=== PATIENT | female | born 2000 | race Caucasian/White ===

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

== ENCOUNTER 2021-02-09 20:29 | Emergency (ER) | payer MEDICAID ==
--- NOTE | 2021-02-09 20:34 | ERPHSYRPT ---
- History of Present Illness Time Seen by Provider: 02/09/21 20:34 Source: patient, family Exam Limitations: no limitations Physician History: This is a 20-year-old white female who felt very weak today and almost passed out. She did not hit her head. She had this same issue in the past but never sought medical care for it. In the last few days she has been outside in the sun and not hydrating well. She has she used marijuana in the past. She denies any other illicit drugs or alcohol use. She did not hit her head. She has no chest pain. She has no shortness of breath. She has no abdominal pain. She has no nausea vomiting or diarrhea. Witnessed: by family Prior Episodes: single episode today, remote history Timing/Duration: today Precipitating Factors: unknown Context: sitting Loss of Consciousness: no loss of consciousness Charcter of event(s): felt faint, almost passed out Allergies/Adverse Reactions: cetirizine Allergy (Severe, Verified 02/09/21 20:35) Anaphylactic Reaction seizure hydroxyzine Allergy (Severe, Verified 02/09/21 20:35) seizure Home Medications: Sertraline HCl [Zoloft] 200 mg PO HS 08/17/15 [History] Albuterol Common Canister [Ventolin Common Canister] 2 puff IH UD PRN 10/25/18 [History] Famotidine [Pepcid] 40 mg PO DAILY 11/02/18 [History] Norgestimate-Ethinyl Estradiol [Tri-Sprintec] 1 each PO DAILY 11/02/18 [History] Sucralfate [Carafate] 10 ml PO QID 11/02/18 [History] Hx Tetanus, Diphtheria Vaccination/Date Given: Yes Hx Influenza Vaccination/Date Given: No Hx Pneumococcal Vaccination/Date Given: No Travel Risk - International Travel Have you traveled outside of the country in past 3 weeks: No - Coronavirus Screening Are you exhibiting any of the following symptoms?: No Close contact with a COVID-19 positive Pt in past 14-21 Days: No - Past Medical History Pertinent Past Medical History: Yes Neurological History: No Pertinent History ENT History: Other Cardiac History: No Pertinent History Respiratory History: No Pertinent History Endocrine Medical History: No Pertinent History Musculoskeletal History: No Pertinent History GI Medical History: GERD History: Other Psycho-Social History: Depression Female Reproductive Disorders: No Pertinent History Other Medical History: UTI, sinus problems - Past Surgical History Past Surgical History: Yes Neuro Surgical History: No Pertinent History Cardiac: No Pertinent History Respiratory: No Pertinent History Gastrointestinal: No Pertinent History Genitourinary: No Pertinent History Musculoskeletal: No Pertinent History, Orthopedic Surgery Female Surgical History: No Pertinent History, Other Other Surgical History: frenulectomy. pins placed in ankles - Social History Smoking Status: Never smoker Exposure to second hand smoke: Yes Drug Use: none Patient Lives Alone: No - Review of Systems Constitutional: No Symptoms Eyes: No Symptoms Ears, Nose, & Throat: No Symptoms Respiratory: No Symptoms Cardiac: No Symptoms Abdominal/Gastrointestinal: No Symptoms Genitourinary Symptoms: No Symptoms Musculoskeletal: No Symptoms Skin: No Symptoms Neurological: No Symptoms Psychological: No Symptoms Endocrine: No Symptoms Hematologic/Lymphatic: No Symptoms Immunological/Allergic: No Symptoms All Other Systems: Reviewed and Negative Physical Exam - Nursing Vital Signs Nursing Vital Signs: Initial Vital Signs Temperature 98.1 F 02/09/21 20:35 Pulse Rate 93 H 02/09/21 20:35 Respiratory Rate 18 02/09/21 20:35 Blood Pressure 118/74 02/09/21 20:35 O2 Sat by Pulse Oximetry 96 02/09/21 20:35 Pain Scale Pain Intensity 4 - [place] Coma Scale Best Eye Response ([place]): (4) open spontaneously Best Verbal Response ([place]): (5) oriented Best Motor Response ([place]): (6) obeys commands [place] Total: 15 - Physical Exam General Appearance: no apparent distress, alert, anxiety Eye Exam: bilateral eye: normal inspection, PERRL, EOMI Ears, Nose, Throat Exam: normal ENT inspection, moist mucous membranes Neck Exam: normal inspection, non-tender, supple, full range of motion Respiratory: normal breath sounds, lungs clear, airway intact, No chest tenderness, No respiratory distress Cardiovascular: regular rate/rhythm, normal heart sounds, normal peripheral pulses Gastrointestinal: soft, normal bowel sounds, No tenderness Pelvic Exam: not done Rectal Exam: not done Back Exam: normal inspection, normal range of motion, No CVA tenderness, No vertebral tenderness Extremity Exam: normal inspection, normal range of motion, pelvis stable Mental Status: alert, oriented x 3, cooperative Coordination/Gait: normal finger to nose, normal gait, normal cerebellar function Motor/Sensory: no motor deficit Skin Exam: normal color, warm, dry SpO2 Interpretation: normal O2 Delivery: Room Air - Course Nursing assessment & vital signs reviewed: Yes EKG Interpreted by Me: RATE (74), Sinus Rhythm, NORMAL AXIS, NORMAL INTERVALS, NORMAL QRS, NORMAL ST-T, Other (No comparison EKG.) Ordered Tests: Active Orders 24 hr Category Date Time Status Clean Catch Urine Specimen STAT Care 02/09/21 20:54 Active EKG-ER Only STAT Care 02/09/21 20:54 Active IV Insertion STAT Care 02/09/21 20:54 Active POCT Glucose Check STAT Care 02/09/21 20:54 Active Pulse Oximetry (ED) STAT Care 02/09/21 20:54 Active HEAD WITHOUT CONTRAST [CT] Stat Exams 02/09/21 21:33 Taken CBC W DIFF Stat Lab 02/09/21 20:55 Completed CMP Stat Lab 02/09/21 20:55 Completed ETHYL ALCOHOL Stat Lab 02/09/21 20:55 Completed HCG,QUALITATIVE URINE Stat Lab 02/09/21 20:47 Completed POCT GLUCOSE Stat Lab 02/09/21 21:12 Completed UA W/RFX UR CULTURE Stat Lab 02/09/21 20:47 Completed Urine Triage Profile Stat Lab 02/09/21 21:06 Ordered Medication Summary Discontinued Medications Generic Name Dose Route Start Last Admin Trade Name Ezequiel PRN Reason Stop Dose Admin Sodium Chloride 1,000 mls @ 999 mls/hr 02/09/21 20:54 02/09/21 21:16 Sodium Chloride 0.9% 1000 Ml IV 02/09/21 21:54 999 mls/hr .Q1H1M STA Administration Sodium Chloride Confirm 02/09/21 21:15 Sodium Chloride 0.9% 1000 Ml Administered 02/09/21 21:16 Dose 1,000 mls @ ud .ROUTE .STK-MED ONE Lab/Rad Data: Laboratory Result Diagrams 02/09/21 20:55 02/09/21 20:55 Laboratory Results 02/09/21 02/09/21 02/09/21 Range/Units 21:12 20:55 20:55 WBC 12.5 H (4.0-10.5) K/mm3 RBC 4.41 (4.1-5.4) M/mm3 Hgb 13.4 (12.0-16.0) gm/dl Hct 40.7 (35-47) % MCV 92.3 (78-100) fl MCH 30.4 (26-32) pg MCHC 32.9 (32-36) g/dl RDW 13.0 (11.5-14.0) % Plt Count 246 (150-450) K/mm3 MPV 9.7 (7.5-11.0) fl Gran % 69.2 H (36.0-66.0) % Eos # (Auto) 0.13 (0-0.5) Absolute Lymphs (auto) 2.77 (1.0-4.6) Absolute Monos (auto) 0.89 (0.0-1.3) Lymphocytes % 22.2 L (24.0-44.0) % Monocytes % 7.1 (0.0-12.0) % Eosinophils % 1.0 (0.00-5.0) % Basophils % 0.5 (0.0-0.4) % Absolute Granulocytes 8.61 H (1.4-6.9) Basophils # 0.06 (0-0.4) Sodium 139 (137-145) mmol/L Potassium 3.8 (3.5-5.1) mmol/L Chloride 105 (98-107) mmol/L Carbon Dioxide 25 (22-30) mmol/L Anion Gap 12.9 (5-15) MEQ/L BUN 10 (7-17) mg/dL Creatinine 0.61 (0.52-1.04) mg/dL Estimated GFR > 60.0 ML/MIN Glucose 91 (74-106) mg/dL POC Glucometer 89 (74 to 106) mg/dL Calcium 9.2 (8.4-10.2) mg/dL Total Bilirubin 0.20 (0.2-1.3) mg/dL AST 20 (14-36) U/L ALT 12 (0-35) U/L Alkaline Phosphatase 83 (38-126) U/L Serum Total Protein 7.3 (6.3-8.2) g/dL Albumin 4.3 (3.5-5.0) g/dL Urine Color (YELLOW) Urine Appearance (CLEAR) Urine pH (5-6) Ur Specific [place] (1.005-1.025) Urine Protein (Negative) Urine Ketones (NEGATIVE) Urine Blood (0-5) [place]/ul Urine Nitrite (NEGATIVE) Urine Bilirubin (NEGATIVE) Urine Urobilinogen (0-1) mg/dL Ur Leukocyte Esterase (NEGATIVE) Urine WBC (Auto) (0-5) /HPF Urine RBC (Auto) (0-2) /HPF U Epithel Cells (Auto) (FEW) /HPF Urine Bacteria (Auto) (NEGATIVE) /HPF Urine Mucus (Auto) (NEGATIVE) /HPF Urine Culture Reflexed (NO) Urine Glucose (NEGATIVE) mg/dL Urine HCG, Qual (Negative) Ethyl Alcohol < 10 (0-10) mg/dL 02/09/21 02/09/21 Range/Units 20:47 20:47 WBC (4.0-10.5) K/mm3 RBC (4.1-5.4) M/mm3 Hgb (12.0-16.0) gm/dl Hct (35-47) % MCV (78-100) fl MCH (26-32) pg MCHC (32-36) g/dl RDW (11.5-14.0) % Plt Count (150-450) K/mm3 MPV (7.5-11.0) fl Gran % (36.0-66.0) % Eos # (Auto) (0-0.5) Absolute Lymphs (auto) (1.0-4.6) Absolute Monos (auto) (0.0-1.3) Lymphocytes % (24.0-44.0) % Monocytes % (0.0-12.0) % Eosinophils % (0.00-5.0) % Basophils % (0.0-0.4) % Absolute Granulocytes (1.4-6.9) Basophils # (0-0.4) Sodium (137-145) mmol/L Potassium (3.5-5.1) mmol/L Chloride (98-107) mmol/L Carbon Dioxide (22-30) mmol/L Anion Gap (5-15) MEQ/L BUN (7-17) mg/dL Creatinine (0.52-1.04) mg/dL Estimated GFR ML/MIN Glucose (74-106) mg/dL POC Glucometer (74 to 106) mg/dL Calcium (8.4-10.2) mg/dL Total Bilirubin (0.2-1.3) mg/dL AST (14-36) U/L ALT (0-35) U/L Alkaline Phosphatase (38-126) U/L Serum Total Protein (6.3-8.2) g/dL Albumin (3.5-5.0) g/dL Urine Color YELLOW (YELLOW) Urine Appearance SLIGHTLY CLOUDY (CLEAR) Urine pH 7.0 (5-6) Ur Specific [place] 1.023 (1.005-1.025) Urine Protein NEGATIVE (Negative) Urine Ketones NEGATIVE (NEGATIVE) Urine Blood NEGATIVE (0-5) [place]/ul Urine Nitrite NEGATIVE (NEGATIVE) Urine Bilirubin NEGATIVE (NEGATIVE) Urine Urobilinogen NEGATIVE (0-1) mg/dL Ur Leukocyte Esterase SMALL (NEGATIVE) Urine WBC (Auto) 6-10 (0-5) /HPF Urine RBC (Auto) NONE (0-2) /HPF U Epithel Cells (Auto) RARE (FEW) /HPF Urine Bacteria (Auto) NONE (NEGATIVE) /HPF Urine Mucus (Auto) SLIGHT (NEGATIVE) /HPF Urine Culture Reflexed NO (NO) Urine Glucose NEGATIVE (NEGATIVE) mg/dL Urine HCG, Qual NEGATIVE (Negative) Ethyl Alcohol (0-10) mg/dL - Progress Progress: improved Progress Note: 02/09/21 22:22 CAT scan of the head without contrast is a normal CT of the head. There is no comparison EKGs available. There is no acute intracranial findings. 02/09/21 22:35 Medical decision making: This patient states that she is feeling much better. She does have a mild urinary tract infection I will provide her with Keflex orally 500 mg once tonight and send 7-day prescription to her pharmacy. She is to drink plenty of fluids. She stay in a cool environment over the next 48 hours. Counseled pt/family regarding: lab results, diagnosis, need for follow-up, rad results - Departure Departure Disposition: Home Clinical Impression: Urinary tract infection, Near syncope Condition: Stable Critical Care Time: No Referrals: DAVID FISHER [Primary Care Provider] - Additional Instructions: Drink plenty of fluids. Avoid exposure to sun and heat over the next 48 hours. Take your antibiotics as prescribed. Follow-up with your primary care physician for further management.
[2021-02-09] MEDS ORDERED: Sodium Chloride 0.9% 1000 ML 1,000 ML IV STA (20:54)
[2021-02-09 21:14] LABS: Absolute Neutrophil Ct (ANC) 8.61 (1.4-6.9); BASOPHIL % 0.5 % (0.0-0.4); Basophil (Absolute #) 0.06 (0-0.4); Eosinophil (Absolute #) 0.13 (0-0.5); Hematocrit 40.7 % (35-47); Hemoglobin 13.4 gm/dl (12.0-16.0); Lymphocyte (Absolute #) 2.77 (1.0-4.6); Lymphocytes % 22.2 % (24.0-44.0); Mean Cell Volume 92.3 fl (78-100); Mean Corpuscular Hemoglobin 30.4 pg (26-32); Mean Corpuscular Hgb Concent. 32.9 g/dl (32-36); Mean Platelet Volume 9.7 fl (7.5-11.0); Monocyte (Absolute #) 0.89 (0.0-1.3); Monocytes % 7.1 % (0.0-12.0); Neutrophil % 69.2 % (36.0-66.0); Platelet Count 246 K/mm3 (150-450); Red Blood Count 4.41 M/mm3 (4.1-5.4); White Blood Count 12.5 K/mm3 (4.0-10.5)
[2021-02-09] MEDS ORDERED: Sodium Chloride 0.9% 1000 ML 1,000 ML ONE (21:15)
[2021-02-09 21:29] LABS: ALBUMIN 4.3 g/dL (3.5-5.0); ALKALINE PHOSPHATASE 83 U/L (38-126); ANION GAP 12.9 MEQ/L (5-15); BLOOD UREA NITROGEN 10 mg/dL (7-17); CHLORIDE 105 mmol/L (98-107); Calcium 9.2 mg/dL (8.4-10.2); Carbon Dioxide 25 mmol/L (22-30); Creatinine 1 0.61 mg/dL (0.52-1.04); EST GLOMERULAR FILTRATION RATE > 60.0 ML/MIN; ETHYL ALCOHOL < 10 mg/dL (0-10); Glucose 91 mg/dL (74-106); Potassium 3.8 mmol/L (3.5-5.1); SGOT/AST 20 U/L (14-36); SGPT/ALT 12 U/L (0-35); SODIUM 139 mmol/L (137-145); Total Protein 7.3 g/dL (6.3-8.2)
[2021-02-09 21:31] LABS: Appearance SLIGHTLY CLOUDY (CLEAR); Bilirubin NEGATIVE (NEGATIVE); Blood NEGATIVE Ery/ul (0-5); Epithelial Cells RARE /HPF (FEW); Glucose NEGATIVE (NEGATIVE); Ketones NEGATIVE (NEGATIVE); Leukocyte Esterase SMALL (NEGATIVE); Mucus SLIGHT /HPF (NEGATIVE); Nitrite NEGATIVE (NEGATIVE); Protein,Urine Dip NEGATIVE (Negative); Specific Gravity 1.023 (1.005-1.025); Urobilinogen NEGATIVE mg/dL (0-1)
[2021-02-09 22:09] VITALS: O2SAT 98
[2021-02-09 22:53] VITALS: BP 106/70; PULSE 76
[2021-02-09 23:10] LABS: Amphetamine,Urine NEGATIVE (NEGATIVE); Barbiturate,Urine NEGATIVE (NEGATIVE); Benzodiazepine,Urine NEGATIVE (NEGATIVE); Cocaine,Urine NEGATIVE (NEGATIVE); Methadone,Urine NEGATIVE (NEGATIVE); Opiate,Urine NEGATIVE (NEGATIVE); PCP,Urine NEGATIVE (NEGATIVE); THC,Urine POSITIVE (NEGATIVE)
--- NOTE | 2021-02-10 08:47 | XRAY ---
Indication: Syncope. Headache. Multiple contiguous axial images obtained through the head without contrast. Comparison: None Normal appearing brain parenchyma, ventricles, and bony calvarium. Visualized paranasal sinuses and mastoid air cells are clear. Impression: Normal CT head without contrast exam.
== END 2021-02-09 22:56 | disposition home or self-care (01) ==
LOC: ED 20:29
DX: N39.0 Urinary tract infection, site not specified (principal); R55 Syncope and collapse; Z79.899 Other long term (current) drug therapy
CPT/HCPCS: 36000; 36415; 70450; 80053; 80307; 81001; 82947; 84703; 85025; 93005; 94760; 99284; G0480

== ENCOUNTER 2021-03-27 12:55 | Emergency (ER) | payer MEDICAID ==
[2021-03-27 13:18] VITALS: O2SAT 98
[2021-03-27] MEDS ORDERED: Sodium Chloride 0.9% 1000 ML 1,000 ML IV STA (13:24)
[2021-03-27] MEDS ORDERED: Sodium Chloride 0.9% 1000 ML 1,000 ML ONE (13:27)
[2021-03-27 13:40] LABS: Appearance SLIGHTLY CLOUDY (CLEAR); Bacteria RARE /HPF (NEGATIVE); Bilirubin NEGATIVE (NEGATIVE); Blood NEGATIVE Ery/ul (0-5); Epithelial Cells RARE /HPF (FEW); Glucose NEGATIVE (NEGATIVE); Ketones NEGATIVE (NEGATIVE); Leukocyte Esterase SMALL (NEGATIVE); Mucus SLIGHT /HPF (NEGATIVE); Nitrite NEGATIVE (NEGATIVE); Protein,Urine Dip NEGATIVE (Negative); RBC 0-2 /HPF (0-2); Specific Gravity 1.024 (1.005-1.025); Urobilinogen NEGATIVE mg/dL (0-1)
[2021-03-27 13:54] LABS: Absolute Neutrophil Ct (ANC) 6.05 (1.4-6.9); BASOPHIL % 0.4 % (0.0-0.4); Basophil (Absolute #) 0.04 (0-0.4); Eosinophil % 1.6 % (0.00-5.0); Eosinophil (Absolute #) 0.15 (0-0.5); Hematocrit 39.3 % (35-47); Hemoglobin 13.2 gm/dl (12.0-16.0); Lymphocytes % 25.9 % (24.0-44.0); Mean Corpuscular Hemoglobin 30.9 pg (26-32); Mean Corpuscular Hgb Concent. 33.6 g/dl (32-36); Mean Platelet Volume 10.1 fl (7.5-11.0); Monocyte (Absolute #) 0.63 (0.0-1.3); Monocytes % 6.8 % (0.0-12.0); Neutrophil % 65.3 % (36.0-66.0); Platelet Count 240 K/mm3 (150-450); Red Blood Count 4.27 M/mm3 (4.1-5.4); Red Cell Distribution Width 12.5 % (11.5-14.0); White Blood Count 9.3 K/mm3 (4.0-10.5)
[2021-03-27 14:07] LABS: ALKALINE PHOSPHATASE 91 U/L (38-126); AMYLASE 47 U/L (30-110); ANION GAP 12.9 MEQ/L (5-15); BLOOD UREA NITROGEN 11 mg/dL (7-17); CHLORIDE 104 mmol/L (98-107); Calcium 9.2 mg/dL (8.4-10.2); Carbon Dioxide 25 mmol/L (22-30); Creatinine 1 0.65 mg/dL (0.52-1.04); EST GLOMERULAR FILTRATION RATE > 60.0 ML/MIN; Glucose 94 mg/dL (74-106); LIPASE 39 U/L (23-300); Potassium 3.9 mmol/L (3.5-5.1); SGOT/AST 18 U/L (14-36); SGPT/ALT 9 U/L (0-35); SODIUM 139 mmol/L (137-145); Total Protein 6.9 g/dL (6.3-8.2)
--- NOTE | 2021-03-27 14:12 | ERPHSYRPT ---
- History of Present Illness Time Seen by Provider: 03/27/21 14:09 Historian: patient Exam Limitations: no limitations Patient Subjective Stated Complaint: pt here for right lower abd pain that radiates to back, no fever, no nuasea, bm today, no pain with urination Triage Nursing Assessment: pt alert, resp easy, skin w/d/p. face mask in place, abd soft, Physician History: pt here for right lower abd pain that radiates to back, no fever, no nuasea, bm today, no pain with urination Patient has this problem off and on for last couple months. Patient also have problem with her menstrual cycles which are very irregular and are associated with abdominal pain. She denies any nausea vomiting fever chills urine trouble blood in the urine pain while urination any vaginal discharge. Timing/Duration: day(s) Activities at Onset: none Quality: burning Abdominal Pain Onset Location: RLQ Pain Radiation: back Severity of Pain-Max: moderate Severity of Pain-Current: mild Modifying Factors: Improves With: nothing Associated Symptoms: denies symptoms Allergies/Adverse Reactions: cetirizine Allergy (Severe, Verified 03/27/21 13:18) Anaphylactic Reaction seizure hydroxyzine Allergy (Severe, Verified 03/27/21 13:18) seizure Home Medications: Albuterol Common Canister [Ventolin Common Canister] 2 puff IH UD PRN 10/25/18 [History] Ergocalciferol (Vitamin D2) [Vitamin D] 1 ea DAILY 03/27/21 [History] Hx Tetanus, Diphtheria Vaccination/Date Given: Yes Hx Influenza Vaccination/Date Given: No Hx Pneumococcal Vaccination/Date Given: No Immunizations Up to Date: Yes Travel Risk - International Travel Have you traveled outside of the country in past 3 weeks: No - Coronavirus Screening Are you exhibiting any of the following symptoms?: No Close contact with a COVID-19 positive Pt in past 14-21 Days: No - Vaccine Status Have you recieved a Covid-19 vaccination: No - Review of Systems Constitutional: No Fever, No Chills Eyes: No Symptoms Ears, Nose, & Throat: No Symptoms Respiratory: No Cough, No Dyspnea Cardiac: No Chest Pain, No Edema, No Syncope Abdominal/Gastrointestinal: Abdominal Pain (right lower quadrant), No Nausea, No Vomiting, No Diarrhea Genitourinary Symptoms: No Dysuria Musculoskeletal: No Back Pain, No Neck Pain Skin: No Rash Neurological: No Dizziness, No Focal Weakness, No Sensory Changes Psychological: No Symptoms Endocrine: No Symptoms All Other Systems: Reviewed and Negative - Past Medical History Pertinent Past Medical History: No Neurological History: No Pertinent History ENT History: Other Cardiac History: No Pertinent History Respiratory History: No Pertinent History Endocrine Medical History: No Pertinent History Musculoskeletal History: No Pertinent History GI Medical History: GERD History: Other Psycho-Social History: Depression Female Reproductive Disorders: No Pertinent History Other Medical History: UTI, sinus problems - Past Surgical History Past Surgical History: Yes Neuro Surgical History: No Pertinent History Cardiac: No Pertinent History Respiratory: No Pertinent History Gastrointestinal: No Pertinent History Genitourinary: No Pertinent History Musculoskeletal: No Pertinent History, Orthopedic Surgery Female Surgical History: No Pertinent History, Other Other Surgical History: feet - Social History Smoking Status: Never smoker Exposure to second hand smoke: No Drug Use: none Patient Lives Alone: No - Female History Hx Last Menstrual Period: december 19 Hx Now: No (negative a month ago) - Nursing Vital Signs Nursing Vital Signs: Initial Vital Signs Temperature 98.0 F 03/27/21 13:14 Pulse Rate 79 03/27/21 13:14 Respiratory Rate 18 03/27/21 13:14 Blood Pressure 123/75 03/27/21 13:14 O2 Sat by Pulse Oximetry 98 03/27/21 13:14 Pain Scale Pain Intensity 6 - Physical Exam General Appearance: no apparent distress, alert Eye Exam: PERRL/EOMI, eyes nml inspection Ears, Nose, Throat Exam: normal ENT inspection, pharynx normal, moist mucous membranes Neck Exam: normal inspection, non-tender, supple, full range of motion Respiratory Exam: normal breath sounds, lungs clear, No respiratory distress Cardiovascular Exam: regular rate/rhythm, normal heart sounds Gastrointestinal/Abdomen Exam: soft, normal bowel sounds, No tenderness, No distention, No mass, No guarding, No ecchymosis, No pulsatile mass, No rebound, No hernia, No hepatomegaly, No organomegaly, No splenomegaly, No bruit Back Exam: normal inspection, normal range of motion, No CVA tenderness, No vertebral tenderness Extremity Exam: normal inspection, normal range of motion, pelvis stable Neurologic Exam: alert, oriented x 3, cooperative, normal mood/affect, nml cerebellar function, sensation nml, No motor deficits Skin Exam: normal color, warm, dry SpO2: 98 - Course Nursing assessment & vital signs reviewed: Yes Ordered Tests: Active Orders 24 hr Category Date Time Status AMYLASE Stat Lab 03/27/21 13:52 Received CBC W DIFF Stat Lab 03/27/21 13:52 Completed CMP Stat Lab 03/27/21 13:52 Received HCG,QUALITATIVE URINE Stat Lab 03/27/21 13:26 Completed LIPASE Stat Lab 03/27/21 13:52 Received UA W/RFX UR CULTURE Stat Lab 03/27/21 13:26 Completed Medication Summary Generic Name Dose Route Start Last Admin Trade Name Freq PRN Reason Stop Dose Admin Sodium Chloride 1,000 mls @ 999 mls/hr 03/27/21 13:24 03/27/21 13:29 Sodium Chloride 0.9% 1000 Ml IV 03/27/21 14:24 999 mls/hr .Q1H1M STA Administration Discontinued Medications Generic Name Dose Route Start Last Admin Trade Name Freq PRN Reason Stop Dose Admin Sodium Chloride Confirm 03/27/21 13:27 Sodium Chloride 0.9% 1000 Ml Administered 03/27/21 13:28 Dose 1,000 mls @ ud .ROUTE .STK-MED ONE Lab/Rad Data: Laboratory Result Diagrams 03/27/21 13:52 Laboratory Results 03/27/21 03/27/21 03/27/21 Range/Units 13:52 13:26 13:26 WBC 9.3 (4.0-10.5) K/mm3 RBC 4.27 (4.1-5.4) M/mm3 Hgb 13.2 (12.0-16.0) gm/dl Hct 39.3 (35-47) % MCV 92.0 (78-100) fl MCH 30.9 (26-32) pg MCHC 33.6 (32-36) g/dl RDW 12.5 (11.5-14.0) % Plt Count 240 (150-450) K/mm3 MPV 10.1 (7.5-11.0) fl Gran % 65.3 (36.0-66.0) % Eos # (Auto) 0.15 (0-0.5) Absolute Lymphs (auto) 2.40 (1.0-4.6) Absolute Monos (auto) 0.63 (0.0-1.3) Lymphocytes % 25.9 (24.0-44.0) % Monocytes % 6.8 (0.0-12.0) % Eosinophils % 1.6 (0.00-5.0) % Basophils % 0.4 (0.0-0.4) % Absolute Granulocytes 6.05 (1.4-6.9) Basophils # 0.04 (0-0.4) Urine Color YELLOW (YELLOW) Urine Appearance SLIGHTLY CLOUDY (CLEAR) Urine pH 5.0 (5-6) Ur Specific Jermyn 1.024 (1.005-1.025) Urine Protein NEGATIVE (Negative) Urine Ketones NEGATIVE (NEGATIVE) Urine Blood NEGATIVE (0-5) Merritt/ul Urine Nitrite NEGATIVE (NEGATIVE) Urine Bilirubin NEGATIVE (NEGATIVE) Urine Urobilinogen NEGATIVE (0-1) mg/dL Ur Leukocyte Esterase SMALL (NEGATIVE) Urine WBC (Auto) 11-15 (0-5) /HPF Urine RBC (Auto) 0-2 (0-2) /HPF U Epithel Cells (Auto) RARE (FEW) /HPF Urine Bacteria (Auto) RARE (NEGATIVE) /HPF Urine Mucus (Auto) SLIGHT (NEGATIVE) /HPF Urine Culture Reflexed NO (NO) Urine Glucose NEGATIVE (NEGATIVE) mg/dL Urine HCG, Qual NEGATIVE (Negative) - Progress Progress: improved, pain not gone completely Counseled pt/family regarding: lab results, diagnosis, need for follow-up - Departure Departure Disposition: Home Clinical Impression: Ovarian cyst, follicular Urinary tract infection Qualifiers: Urinary tract infection type: site unspecified Hematuria presence: without hematuria Qualified Code(s): N39.0 - Urinary tract infection, site not specified Condition: Stable Critical Care Time: No Referrals: DAVID FISHER [Primary Care Provider] - Instructions: Acute Abdomen (Belly Pain), Adult (DC), Ovarian Cysts, Urinary Tract Infection, Adult (DC) Additional Instructions: Discharge/Care Plan REBECASHILO RAMIREZ was seen on 03/27/21 in the Emergency Room. The patient was counseled regarding Diagnosis,Lab results, Imaging studies, need for follow up and when to return to the Emergency Room. Prescriptions given: Discharge Note I have spoken with the patient and/or caregivers. I have explained the patient's condition, diagnosis and treatment plan based on the information available to me at this time. I have answered the patient's and/or caregiver's questions and addressed any concerns. The patient and/or caregivers have as good understanding of the patient's diagnosis, condition and treatment plan as can be expected at this point. The vital signs have been stable. The patient's condition is stable and appropriate for discharge from the emergency department. The patient will pursue further outpatient evaluation with the primary care physician or other designated or consulting physician as outlined in the discharge instructions. The patient and/or caregivers are agreeable to this plan of care and follow-up instructions have been explained in detail. The patient and/or caregivers have received these instruction. The patient/and or caregivers are aware that any significant change in condition or worsening of symptoms should prompt an immediate return to this or the closest emergency department or call 911. SHILO JOSE was seen on 03/27/21 n the Emergency Room. At that time you were treated for an emergent condition, during your visit Laboratory, Radiology and/or other procedures may have been ordered. It is very important that you follow-up with your Primary Care Physician DAVID FISHER within the next 24-48 hours to review your Emergency Room visit and the final results of testing that was ordered. Some test results such as Urine Cultures, Blood Cultures, and other cultures if ordered will not be finalized for 24-48 hours. If you do not have a Primary Care Provider please call the medical records department at [phone] ext [phone] to obtain a copy of your results or you may sign into our patient portal to obtain these results by visiting us @ [email or web address] and completing the following steps: 1. Click on the Patient Portal link 2. Click the Patient Self Enrollment Link to complete the enrollment form and entering your 3. Once the enrollment form is completed you will receive an email with a temporary ID and password at the email address you provided. 4. Next choose a user name and password. Your user name must be at least 4 characters long and your password must be at least 4 characters long. 5. Choose a security question from the list and provide your answer to the question. If you already have signed into the Health Portal you may access your Health Care Information 27/02 by the following steps: 1. Login to our website @ [email or web address] 2. Enter your original user name and password. FAQS The [facility] Portal is an online tool that contains your Lab Results, Radiology Reports, Visit History, Discharge Instructions and Health Summary Lab and Radiology Results will not be available for 72 hours on the portal. The Portal is a secure site, passwords are encryted and URLs are re-written so they cannot be copied and pasted. You and authorized family members are the only ones who can access your Portal. Also there is a timeout feature that protects your information if you leave the Portal page open. If you have technical difficulty please use the Contact Us link on the page this will allow you to submit any questions you have regarding the Portal or you may contact the Medical Record Department at [phone]. Prescriptions: Smz/Tmp Ds Tablet [Bactrim Ds Tablet] 1 udtab PO BID #20 tablet
[2021-03-27] MEDS ORDERED: Rocephin 1000 MG INJ IM ONE (14:16)
[2021-03-27] MEDS ORDERED: ROCEPHIN 1 Gm-D5w 50 ml Bag** 1 G/50 ML IVPB IV STA (14:26)
[2021-03-27] MEDS ORDERED: ROCEPHIN 1 Gm-D5w 50 ml Bag** 1 G/50 ML IVPB IV ONE (14:27)
[2021-03-27 14:29] VITALS: BP 113/76; PULSE 61
== END 2021-03-27 15:11 | disposition home or self-care (01) ==
LOC: ED 12:55
DX: N83.00 Follicular cyst of ovary, unspecified side (principal); N39.0 Urinary tract infection, site not specified
CPT/HCPCS: 36000; 36415; 80053; 81001; 82150; 83690; 84703; 85025; 96360; 96365; 99284; J0696

== ENCOUNTER 2021-05-04 08:20 | Day surgery (SDC) | payer MEDICAID ==
[~2021-05-04 08:20] MED LIST: CEFAZOLIN 2 GM-D5W BAG** 2 GM/50 ML ML IV SCH; Lactated Ringers 1,000 ML IV SCH; Sensorcaine 0.25% 10 ML ONE
[2021-05-04] MEDS ORDERED: Lactated Ringers 1,000 ML IV ONE ×2 (08:41→10:09)
[2021-05-04] MEDS ORDERED: CEFAZOLIN 2 GM-D5W BAG** 2 GM/50 ML ML IV ONE (08:42)
[2021-05-04] MEDS ORDERED: Versed 2 MG/2 ML Injection ONE (09:40)
[2021-05-04] MEDS ORDERED: TORAdol 30 mg Injection ONE (09:40)
[2021-05-04] MEDS ORDERED: Zofran 4 MG/2 ML VIAL ONE (09:40)
[2021-05-04] MEDS ORDERED: Decadron 4 MG INJ ONE (09:40)
[2021-05-04] MEDS ORDERED: DIPRIVAN 200 MG/20 ML IV ONE (09:40)
[2021-05-04] MEDS ORDERED: SUBLIMAZE 250 MCG/5 ML ONE (09:42)
[2021-05-04] MEDS ORDERED: Zemuron 100 MG/10 ML ONE ×2 (09:44→10:22)
[2021-05-04] MEDS ORDERED: BRIDION 200MG/2ML IV ONE (10:26)
[2021-05-04 11:20] LABS: Appearance SLIGHTLY CLOUDY (CLEAR); Bilirubin NEGATIVE (NEGATIVE); Blood NEGATIVE Ery/ul (0-5); Epithelial Cells RARE /HPF (FEW); Glucose NEGATIVE (NEGATIVE); Ketones NEGATIVE (NEGATIVE); Leukocyte Esterase NEGATIVE (NEGATIVE); Mucus SLIGHT /HPF (NEGATIVE); Nitrite NEGATIVE (NEGATIVE); Protein,Urine Dip NEGATIVE (Negative); RBC 0-2 /HPF (0-2); Urobilinogen NEGATIVE mg/dL (0-1); WBC 0-2 /HPF (0-5)
[2021-05-04 12:14] VITALS: BP 121/78; PULSE 51; O2SAT 94
--- NOTE | 2021-05-05 14:33 | OP ---
SURGERY DATE: 05/04/2021 SURGERY TIME: 946 PREOPERATIVE DIAGNOSIS: 1. PELVIC PAIN AND RIGHT OVARIAN CYST. POSTOPERATIVE DIAGNOSIS: 1. LEFT OVARIAN CYST WITH PELVIC PAIN. PROCEDURE: 1. Diagnostic laparoscopy. 2. Drainage of left ovarian cyst. SURGEON: Dr. Demarcus Nunez. [employer] MECHANIC: optical engineering technician, Brenda. ANESTHESIA: General. ESTIMATED BLOOD LOSS: Minimal. COMPLICATIONS: None. FINDINGS: The risks, benefits, indications, and alternatives of the procedure were reviewed with the patient prior to the procedure. Patient understood the risk of infection, bleeding, bowel injury, bladder injury, ureteral injury, uterine perforation, pelvic infection, thromboembolic disorder associated with this surgery. However, desires to have the surgery as a possible means to alleviate her current medical condition. DESCRIPTION OF PROCEDURE: At this point, the patient was taken to the operating room, placed in a supine position, she was given anesthesia, she was prepped and draped in the usual sterile fashion. A 5 mm skin incision was made approximately 1 cm above the umbilicus where a 5 mm trocar and sleeve were advanced under direct visualization. Pneumoperitoneum was obtained with 4 liters of CO2 gas. An additional incision was made in the left middle quadrant region where a 5 mm incision was made and a 5 mm trocar and sleeve were advanced under direct visualization as well. An additional incision was made approximately 2 cm above the symphysis pubis where a 5 mm incision was made and a 5 mm trocar and sleeve were advanced under direct visualization as well. At this point, on survey the patient's pelvis revealed her to have serosanguinous fluid in the anterior and posterior cul-de-sac most likely secondary to ruptured right ovarian cyst that was noted to be 6 cm in dimension prior to surgery. The right ovary appeared to be within normal limits with no cyst that was noted. The left ovary however appeared to have an approximately 3 cm simple cyst which was elevated with a grasper through the trocar site and a needle aspirator was then placed through this portion and aspirated. Approximately 3 cc of serosanguinous was obtained. It was done so without complications. Hemostasis was obtained during this procedure. The uterus and bilateral tubes appeared to be within normal limits as well as the left ovary appeared to be within normal limits. There was no other gross abnormality in the pelvic and abdominal region. There were no adhesions that were noted. Everything appeared to be within normal limits. From this point, all instruments were then removed from the patient's abdominal region and the incision was closed with 4-0 Monocryl suture. Patient was then taken out of anesthesia and was then taken to the recovery room in stable condition. All instruments and Laps were accounted for X 2.
== END 2021-05-04 12:15 | disposition home or self-care (01) ==
LOC: SDC 08:20
PROVIDERS: ATTEND Obstetrics & Gynecology
DX: N83.201 Unspecified ovarian cyst, right side (principal); R10.2 Pelvic and perineal pain
CPT/HCPCS: 36415; 49322; 81001; 81025; 87070; 87075; 87086; 87205; J0690; J1100; J1885; J2250; J2405; J2704; J3010